=== PATIENT | female | born 1995 | race Caucasian/White ===

== ENCOUNTER 2022-10-15 19:15 | Emergency (ER) | payer OTHER ==
[~2022-10-15] VITALS: Ht 172.7 cm; Wt 86.2 kg
[2022-10-15] MEDS ORDERED: LISD20CA PO (20:04)
[2022-10-15] MEDS ORDERED: ARIP5TAB10 PO (20:04)
[2022-10-15] MEDS ORDERED: ALBUTEROL SULFATE 2.5 MG/3 ML NEBU NEB ONE (20:45)
[2022-10-15] MEDS ORDERED: ALBUTEROL SULFATE 2.5 MG/3 ML NEBU ONE (20:55)
--- NOTE | 2022-10-15 21:04 | NUR ---
RT at bedside for respiratory treatment.
[2022-10-15 21:14] LABS: HEMATOCRIT 40.6 % (31.2-41.9); MEAN CORPUSCULAR HEMOGLOBIN 31.9 uug (24.7-32.8); MEAN CORPUSCULAR VOLUME 94.3 fL (75.5-95.3); PLATELET COUNT (AUTO) 209 K/uL (179-408)
[2022-10-15 21:21] LABS: CARBON DIOXIDE 26 mmol/L (21-32); CHLORIDE 101 mmol/L (98-107); CREATININE 0.6 mg/dL (0.6-1.3); GLUCOSE 90 mg/dL (74-106); POTASSIUM 3.9 mmol/L (3.5-5.1); UREA NITROGEN, BLOOD 14 mg/dL (7-18)
--- NOTE | 2022-10-15 21:39 | NUR ---
Patient oxygen saturation 100% on room air. Patient resting comfortably in bed, no distress noted.
[2022-10-15] MEDS ORDERED: ALBU6.7H9 INH (21:52)
--- NOTE | 2022-10-15 22:01 | NUR ---
Patient discharged to home in stable condition. Written and verbal after care instructions given. Patient verbalizes understanding of instructions. Stressed follow up or return to ER for worsening s/s.
[2022-10-15 22:19] VITALS: BP 117/87
== END 2022-10-15 22:00 | disposition home or self-care (01) ==
LOC: ER 19:15
DX: J98.01 Acute bronchospasm (principal); B34.9 Viral infection, unspecified; R00.0 Tachycardia, unspecified; F31.9 Bipolar disorder, unspecified
CPT/HCPCS: 36415; 71045; 83735; 84484; 85025; 93005; A4663

== ENCOUNTER 2022-12-27 20:00 | Emergency (ER) | payer OTHER ==
[~2022-12-27] VITALS: Ht 172.7 cm; Wt 86.2 kg
[~2022-12-27 20:00] MED LIST: ALBU6.7H9 INH; ARIP5TAB10 PO; LISD20CA PO
--- NOTE | 2022-12-27 20:30 | NUR ---
Dr Melton at bedside, MSE in progress
[2022-12-27] MEDS ORDERED: HYDROCODONE/APAP 5-325MG TABLET PO ONE (20:45)
[2022-12-27] MEDS ORDERED: HYDROCODONE/APAP 5-325MG TABLET ONE (20:56)
[2022-12-27 21:18] LABS: HEMATOCRIT 40.1 % (31.2-41.9); MEAN CORPUSCULAR HEMOGLOBIN 31.5 uug (24.7-32.8); MEAN CORPUSCULAR VOLUME 93.3 fL (75.5-95.3); PLATELET COUNT (AUTO) 266 K/uL (179-408)
[2022-12-27 21:25] LABS: *BILIRUBIN,URIN NEGATIVE (NEGATIVE); *BLOOD, URINE NEGATIVE (NEGATIVE); *CLARITY,URINE CLEAR (CLEAR); *COLOR,URINE YELLOW (YELLOW); *KETONES,URINE NEGATIVE (NEGATIVE); *UROBILINOGEN,URINE 0.2 E.U./dl (NORMAL); LEUKOCYTE ESTERASE ,URINE NEGATIVE (NEGATIVE); NITRITE, URINE NEGATIVE (NEGATIVE); PH,URINE 5.5 (5.0-8.0); UGLUCOSE NEGATIVE (NEGATIVE)
[2022-12-27 21:25] LABS: CARBON DIOXIDE 28 mmol/L (21-32); CHLORIDE 104 mmol/L (98-107); CREATININE 0.6 mg/dL (0.6-1.3); GLUCOSE 96 mg/dL (74-106); POTASSIUM 3.8 mmol/L (3.5-5.1); UREA NITROGEN, BLOOD 16 mg/dL (7-18)
--- NOTE | 2022-12-27 21:29 | NUR ---
Female veneer stock layer accompanied female patient for rectal exam
--- NOTE | 2022-12-27 22:00 | NUR ---
Patient taken to CT by [facility] via wheelchair
--- NOTE | 2022-12-27 22:23 | NUR ---
Patient is back from CT scan
[2022-12-28 00:31] VITALS: BP 125/71
--- NOTE | 2022-12-28 00:31 | NUR ---
Patient discharged to home in stable condition. Written and verbal after care instructions given. Patient verbalizes understanding of instructions. Stressed follow up or return to ER for worsening s/s. Patient is a/ox4, NAD noted. patient ambulated with steady gait
== END 2022-12-28 00:32 | disposition home or self-care (01) ==
LOC: ER 20:00
DX: M54.50 Low back pain, unspecified (principal); M54.16 Radiculopathy, lumbar region; R10.2 Pelvic and perineal pain; Z79.899 Other long term (current) drug therapy
CPT/HCPCS: 36415; 72131; 83605; 85025; 85651; 85730; 87040; A4663

== ENCOUNTER 2023-04-22 13:11 | Emergency (ER) | payer OTHER ==
[~2023-04-22] VITALS: Ht 170.2 cm; Wt 83.9 kg
[2023-04-22 13:16] VITALS: O2SAT 100
[2023-04-22] MEDS ORDERED: KETOROLAC TROMETHAMINE 15 MG INJ IVP ONE (14:00)
[2023-04-22] MEDS ORDERED: METOCLOPRAMIDE HCL 10 MG/2 ML VIAL IV ONE (14:00)
[2023-04-22] MEDS ORDERED: METOCLOPRAMIDE HCL 10 MG/2 ML VIAL ONE (14:08)
[2023-04-22] MEDS ORDERED: KETOROLAC TROMETHAMINE 15 MG INJ ONE (14:08)
[2023-04-22 14:15] LABS: *BILIRUBIN,URIN NEGATIVE (NEGATIVE); *CLARITY,URINE CLEAR (CLEAR); *COLOR,URINE YELLOW (YELLOW); *KETONES,URINE NEGATIVE (NEGATIVE); *PROTEIN,URINE NEGATIVE (NEGATIVE); *UROBILINOGEN,URINE 0.2 E.U./dl (NORMAL); LEUKOCYTE ESTERASE ,URINE NEGATIVE (NEGATIVE); NITRITE, URINE NEGATIVE (NEGATIVE); UGLUCOSE NEGATIVE (NEGATIVE)
[2023-04-22 14:31] LABS: *BLOOD, URINE NEGATIVE (NEGATIVE)
[2023-04-22 14:47] LABS: BASOPHILS # (AUTO) 0.1 K/UL (0.0-0.2); BASOPHILS % (AUTO) 0.7 % (0.0-2.0); DIFFERENTIAL COMMENT N; EOSINOPHILS % (AUTO) 0.4 % (0.0-7.0); HEMATOCRIT 41.3 % (31.2-41.9); HEMOGLOBIN 14.4 g/dL (10.9-14.3); LYMPHOCYTES # (AUTO) 1.2 K/uL (0.8-4.8); LYMPHOCYTES % (AUTO) 15.1 % (20.5-51.5); MEAN CORPUSCULAR HGB CONC 35 g/dL (32.3-35.6); MEAN CORPUSCULAR VOLUME 92.1 fL (75.5-95.3); MONOCYTES # (AUTO) 0.6 K/uL (0.1-1.30); MONOCYTES % (AUTO) 7.4 % (0.0-11.0); NEUTROPHILS % (AUTO) 76.4 % (38.5-71.5); PLATELET COUNT (AUTO) 260 K/uL (179-408); RED BLOOD CELL COUNT(AUTO) 4.48 MIL/uL (3.63-4.92); RED CELL DISTRIBUTION WIDTH 13.8 % (12.3-17.7); WHITE BLOOD COUNT (AUTO) 7.9 K/uL (3.8-11.8)
[2023-04-22 14:52] LABS: CALCIUM 9.8 mg/dL (8.5-10.1); CARBON DIOXIDE 27 mmol/L (21-32); CHLORIDE 99 mmol/L (98-107); CREATININE 0.7 mg/dL (0.6-1.3); GLUCOSE 93 mg/dL (74-106); POTASSIUM 4.3 mmol/L (3.5-5.1); SODIUM SERUM 136 mmol/L (136-145); UREA NITROGEN, BLOOD 9 mg/dL (7-18)
[2023-04-22 14:57] LABS: ALANINE AMINOTRANSFERASE 21 U/L (14-59); ALBUMIN 4.5 g/dL (3.4-5.0); ALKALINE PHOSPHATASE 73 U/L (50-136); ASPARTATE AMINOTRANSFERASE 8 U/L (15-37); BILIRUBIN,DIRECT 0.1 mg/dL (0.0-0.2); BILIRUBIN,TOTAL 0.6 mg/dL (0.2-1.0); LIPASE 39 U/L (73-393); TOTAL PROTEIN, SERUM 8.4 g/dL (6.4-8.2)
[2023-04-22 15:34] LABS: PREGNANCY TEST SERUM QUAN < 1 miul/L (0-6)
[2023-04-22] MEDS ORDERED: ACET1TAB23 PO (16:20)
[2023-04-22] MEDS ORDERED: FAMO40TA7 PO (16:20)
[2023-04-22] MEDS ORDERED: SUCR1ORA4 PO (16:20)
== END 2023-04-22 16:42 | disposition home or self-care (01) ==
LOC: ER 13:11
DX: R10.13 Epigastric pain (principal); R10.2 Pelvic and perineal pain; Z79.899 Other long term (current) drug therapy
CPT/HCPCS: 99285; 74176; 96374; 76705; 96375; 80076; 80048; 81003; 83690; 85025; 84702; 36415; J1885; J2765; A4663